=== PATIENT | female | born 1990 | race Caucasian/White ===

== ENCOUNTER 2020-03-07 09:29 | Outpatient (CLI) | payer MEDICAID, SELFPAY ==
[2020-03-07 09:55] LABS: Basophils % 0.5 %; Eosinophils # 0.1 10^3/uL (0.0-0.8); Eosinophils % 1.4 %; Hematocrit 44.3 % (37.0-47.0); Lymphocytes # 2.4 10^3/uL (0.8-4.8); Mean Corpuscular HGB Conc 31.6 g/dL (30.0-36.0); Mean Corpuscular Hemoglobin 28.1 pg (28.0-34.0); Mean Platelet Volume 13.2 fL (7.4-10.4); Monocytes # 0.3 10^3/uL (0.2-0.9); Monocytes % 3.6 %; Neutrophils # 5.43 10^3/uL (1.8-7.7); Neutrophils % 65.1 %; Nucleated Red Blood Cells % 0 %; Platelet Count 115 10^3/cmm (130-400); Red Blood Count 4.98 10^6/uL (4.1-5.3); Red Cell Distribution Width 13.1 % (12.1-15.1); White Blood Count 8.3 10^3/uL (4.0-10.0)
[2020-03-07 12:20] LABS: Ferritin 100 ng/mL (15-150); Iron 64 ug/dL (37-145); Percent Saturation 17.7 % (20-50); Total Iron Binding Capacity 360 mcg/dl; Unsaturated Iron Binding 296 ug/dL (112-347)
[2020-03-07 12:34] LABS: LAB Peripheral Smear Sent for Review
[2020-03-07 12:50] LABS: Platelet Count 98 10^3/cmm (130-400)
--- NOTE | 2020-03-07 16:38 | ONC CON_ITS ---
Dr. Bowman New Patient Note Patient: Stella Hamilton Unit #: [id number]: 1990 Dicatated By: Matthew Bowman M.D.Date of Visit: Mar 07, 2020 Onc MED New Patient/Consult Referring Physician: Dr. Catracho Pimentel M.D. Dr. Amadou Castaneda History of Present Illness: Ms. Stella Hamilton is a 29-year-old female , first seen here at 23 weeks of gestation. Her estimated date of delivery was 01/15/14. On review of her laboratory data pre-, she had a borderline low platelet counts of 130,000 in November of 2010 without anemia. On 06/02/13 she was seen in ED with streptococcal urinary tract infection. At that time, her platelets measured 104,000. WBC and hemoglobin were unremarkable. On routine laboratory analysis by [facility] from 09/04/13 her platelets further decreased to 95,000, MPV 12.3. She was first seen on 07/22/14. Iron deficiency was found, she began on oral supplements. At 30 weeks of gestation, her platelets decreased to 80,000, without hemolysis. An ultrasound of the abdomen on 11/23/2013 showed significant hepatomegaly at 17.8 cm with fatty infiltration. She had an enlarged spleen up to 14.1 cm without intrasplenic masses identified. On 12/04/13 bone marrow biopsy showed 95 -100% cellularity with a trilineage hematopoiesis, increased megakaryocytes without significant atypia. She had absent iron storage. Flow was with a myeloid left shift without aberrant populations detected. On 01/13/2014 she required a , due to failure to progress. She had her platelets were stable at 80,000. She had no significant complications, although hemoglobin decreased to 9.6 g/dL . No transfusions required. She stopped iron pills after taking for few weeks . No petechia or bruising. Her hemoglobin recovered to 13.9 g/dL, platelets stable at 92,000. She has subclinical iron deficiency. Follow-up sonogram of abdomen was ordered on August 24, 2014 but patient did not go for it as she moved down to [place] in 2014 and there she never needed any intervention, in fact never saw any physician or any lab work-up was done during her stay in [place] and then in 2017 she moved back to [place]. As per patient in January 2027 developed nausea vomiting diarrhea and left upper quadrant pain and went to [facility] where she was diagnosed with stomach bug and her lab work-up in the ER showed her platelet count was 55,000, she was treated with oral antibiotics and hydration, she improved and follow-up CBC done in her [facility] office on February 26, 2020 shows white blood count 9.4 hemoglobin 14.1 hematocrit 44.5 platelets 122,000, patient was referred to hematology clinic for further follow-up and evaluation as per patient she never had any hematuria or hemoptysis or hematemesis or hematochezia but did have some difficulty in stopping bleeding when she underwent tooth extraction and she bled for 2 days. But patient was taking Excedrin for tooth ache prior to the procedure. Patient has no family history of bleeding disorder or blood disorder Patient denies any petechia or ecchymosis patient denies any nosebleed or gum bleed patient denies any hematuria or dysuria patient denies any melena or hematochezia. Patient denies any menstrual periods since last year, she has seen [facility] for that and progesterone was recommended and now under consideration.Denies abdominal pain, no night sweats, no recurrent fever, no weight loss, no peripheral lymphadenopathy or abdominal fullness. Past Medical History: Ms. Hamilton's medical history is unremarkable. Past Surgical History: Ms. aHmilton's surgical/procedural history consists of cholecystectomy, mandible repair, and tonsillectomy. Medications: There is no information available for Current Medications - Patient. Allergies: Amoxicillin and Penicillins. 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 She is an occasional smoker who has smoked 0.5 packs/day for 10 years. She has no history of drinking. She has indicated exposure to the following products: cigarettes. Ms. Hamilton reports the following support systems: lives with spouse, significant other, family, or friends, lives in own house, and supportive family/friends willing to assist with needs. Her diet consists of regular meals. She indicates her activity level as: regular exercise. Family History: Ms. Hamilton's mother is alive: medical history includes anemia. Ms. Hamilton's father is alive: medical history includes Polycythemia. Ms. Hamilton has 1 sister who is alive: medical history includes anemia. Review Of Symptoms: Constitutional - No weight loss, fevers, chills,or night sweats, ENMT - No problems with hearing, no sore throat, no sinus drainage, Hematologic/Lymphatic - Positive for easy bruising and frequent nosebleeds, Respiratory - No cough, hemoptysis, or wheezing, Cardiovascular - No chest pain, palpitations, dyspnea on exertion, or recent change in exercise tolerance, Gastrointestinal - No dysphagia, abdominal pain, nausea, vomiting, or constipation. Positive for diarrhea, Genitourinary (F) - No hematuria. Positive for urinary frequency, no urgency or incontinence, Musculoskeletal - No joint pain or bone pain, Integumentary - No chronic rashes, ulcerations or skin changes, Neurologic - No headache and no areas of focal weakness or numbness. No loss of consciousness. No sensory problems, Psychiatric - Positive for anxiety. Vital Signs: Performed on Mar 07, 2020 11:37: 0, 41.24 (HIGH), 2.17 sq.m, 65.00 in, 99 %, 79 /min, 20 /min, 143/96 mm(hg) (HIGH), 97.7 F (LOW), 247.8 lbs (HIGH), and Performed on Aug 24, 2014 08:07: 0. Performance Status: 0 - Fully active, able to carry on all predisease activities without restrictions. (ECOG) Physical Examination: ENMT - No mouth sores, no thrush, no jaundice, Respiratory - Lungs are clear, Cardiovascular - Regular rate and rhythm of heart, Abdomen - Soft, bowel sounds present, Extremities - No visible edema, petechia or ecchymosis, no peripheral lymphadenopathy. Lab/Imaging: Test performed on Mar 07, 2020 09:40 WBC 8.3 10 3/uL RBC 4.98 10 6/uL HGB 14.0 g/dL HCT 44.3 % MCV 89.0 fL MCH 28.1 pg MCHC 31.6 g/dL RDW 13.1 % Platelet Count 115 10 3/cmm MPV 13.2 fL Neutrophils 5.43 10 3/uL Lymphocytes 2.4 10 3/uL Monocytes 0.3 10 3/uL Eosinophils 0.1 10 3/uL Basophils 0.0 10 3/uL Neutrophil % 65.1 % Lymphocyte % 29.0 % Monocyte % 3.6 % Eosinophil % 1.4 % Basophils % 0.5 % NRBC % 0 % Impression: h/o mild thrombocytopenia discovered at 21 weeks of gestation. She had a in January 2014. Her anemia recovered, with oral iron A. The thrombocytopenia is multifactorial: 1) iron deficiency, was treated with oral replacement. 2) trapping of platelets due to hepatosplenomegaly 3) may still have a component of immune thrombocytopenic purpura (ITP) as she has increased megas in the marrow. B: Hepatosplenomegaly is concerning, but of unclear etiology: Non - alcoholic steatohepatitis is a rare in her age group. Lymphoproliferative disorder is not supported by bone marrow biopsy from 12/04/13. Plan: Discussed with patient regarding her labs white blood count 8.3 hemoglobin 14 crit 44.3 platelets 115,000 Clinically, patient is doing well with no signs symptoms suggestive of bleeding, her follow-up labs shows mild thrombocytopenia with a normal hemoglobin and white blood count. Etiology unclear could be multifactorial including splenic sequestration or platelet clumping due to EDTA in the sampling tube. At this point we will consider CT scan of abdomen to check hepatosplenomegaly status which was seen on her previous abdominal sonogram in 2013, follow-up abdominal sonogram was ordered in August 2014 but patient did not schedule it. And also reviewed peripheral blood smear and do manual platelet count to rule out clumping. And she return to clinic after CT scan of abdomen with CBC. Signed By: Matthew Bowman M.D. <<Signature on File>>
== END 2020-03-07 09:30 | disposition home or self-care (01) ==
LOC: ONCMED 09:33
PROVIDERS: PCP Family Medicine; Visit Provider Internal Medicine Hematology & Oncology
DX: D69.6 Thrombocytopenia, unspecified (principal); R16.2 Hepatomegaly with splenomegaly, not elsewhere classified
CPT/HCPCS: 80500; 82728; 83540; 83550; 85025; 85049; 99203

== ENCOUNTER → 2021-03-07 10:42 | Outpatient (BNVA) | payer OTHER, SELFPAY | PROVIDERS: PCP Family Medicine; Referring Provider Emergency Medicine; Visit Provider Orthopaedic Surgery | DX: S82.141A Displaced bicondylar fracture of right tibia, initial encounter for closed fracture (principal); X58.XXXA Exposure to other specified factors, initial encounter | CPT/HCPCS: 73562 ==

== ENCOUNTER → 2021-06-08 10:18 | Outpatient (BNVA) | payer OTHER, SELFPAY | PROVIDERS: PCP Family Medicine; Referring Provider Orthopaedic Surgery; Visit Provider Orthopaedic Surgery | DX: Z01.812 Encounter for preprocedural laboratory examination (principal); Z20.822 Contact with and (suspected) exposure to COVID-19 | CPT/HCPCS: 87635 ==

== ENCOUNTER 2022-02-12 22:39 | Outpatient (CLI) | payer OTHER, SELFPAY ==
[2022-02-12] VITALS (7 sets, daily range): BP systolic 132–156; BP diastolic 71–91; PULSE 78–100; RESP 20; BMI 46.5
[2022-02-12 22:55] LABS: Urine Appearance Clear (CLEAR); Urine Color Colorless (Yellow)
[2022-02-12 22:56] LABS: Bilirubin Urine Neg (Negative); Blood Urine Neg (Negative); Glucose Urine UA Norm (Normal); Ketones Urine Negative (Negative); Leukocyte Esterase Urine Negative (Negative); Nitrate Urine Negative (Negative); Protein Urine Neg (Negative); Specific Gravity, Urine 1.005 (1.005-1.030); Urobilinogen Urine Norm (Negative); pH Urine 7 (5-7)
[2022-02-12 23:01] LABS: Add Urine Culture? No; Bacteria Urine 1+ /hpf; RBC Urine 0-4 /hpf (0-2); Squamous Epithelial Cell Urine 0-4 /hpf (0-5); WBC Urine 0-4 /hpf (0-5)
== END 2022-02-12 23:50 | disposition home or self-care (01) ==
LOC: OPOB 22:41 → OBGYN 22:43
PROVIDERS: PCP Family Medicine; Visit Provider Family Medicine
DX: O26.899 Other specified pregnancy related conditions, unspecified trimester (principal); Z3A.00 Weeks of gestation of pregnancy not specified; R10.9 Unspecified abdominal pain
CPT/HCPCS: 59025; 81001; 99211

== ENCOUNTER → 2022-03-06 10:27 | Outpatient (BNVA) | payer OTHER, SELFPAY | PROVIDERS: PCP Family Medicine; Visit Provider Orthopaedic Surgery | DX: M25.561 Pain in right knee (principal) | CPT/HCPCS: 73560; 73565 ==

== ENCOUNTER 2022-04-26 06:00 | Day surgery (SDC) | payer OTHER, SELFPAY ==
[2022-04-25 10:33] VITALS: BMI 37.4
[2022-04-26] VITALS (8 sets, daily range): BP systolic 115–145; BP diastolic 71–89; PULSE 66–90; RESP 14–18; TEMP 36.1–36.4; O2SAT 93–99
--- NOTE | 2022-04-26 06:07 | P.ANESASSM_ITS ---
Pre-Anesthetic Assessment Height/Weight: Height 1.65 m Weight 102.058 kg Preop Diagnosis: Knee pain Operation Date: 04/26/22 07:00 Proposed Procedures p Right Knee Arthroscopy 91281,S80.01XA(Right) - Duane Nicole MD Familial anesthetic complications: none Was Beta Tiffanie taken within 24 hours: N/A Was Clonidine taken within 24 hours: N/A Last intake: 04/25/22 Social Tobacco and No alcohol Exam alert, oriented x 3, clear to auscultation bilaterally and regular rate & rhythm Airway Submandibular: within normal limits Cervical ROM: within normal limits Mallampati: Class I Dentition: partials History/ROS No significant complaints Pulmonary None reported CV/HEM None reported None reported Hepatic None reported GI None reported Metabolic Diabetes Mellitus Musc/skel Knee pain Obesity Neuropsych None reported Anesthetic Plan ASA status: 2 Anesthesia: Anesthesia Evaluation and General Other: We discussed risk and benefits of general anesthesia including PONV, sore throat (sometimes severe), corneal abrasion, positioning and peripheral nerve injuries, life threatening allergic reaction, post operative ICU admission requiring prolonged intubation, stroke, heart attack, , and rare incidences of recall. Patient consents to proceed with general anesthesia. Today I conducted a brief goal based motivational smoking intervention with the patient. We discussed the health risk of prolonged tobacco use, as well as the risk of debbie-operative tobacco use and its impact on wound healing/post-op infections. Risk of > 500 ml blood loss (7ml/kg in children): No Medications/Allergies Home Medications Medication Instructions Recorded Confirmed Last Taken Type vitamins-iron fumarate 65 1 tab PO DAILY 02/12/22 04/25/22 02/12/22 08:00 History mg iron-folic acid 1 mg tablet metformin 500 mg tablet 500 mg PO BID 04/25/22 04/25/22 Unknown History hydrocodone 5 mg-acetaminophen 325 1 tab PO Q4H #30 tabs 04/26/22 Unknown Rx mg tablet Allergies Allergy/AdvReac Type Severity Reaction Status Date / Time No Known Allergies Allergy Verified 04/25/22 10:29 [facility] Anesthesia Social History Smoking and tobacco status: current every day smoker Data Anesthesia Cardiac Studies: No Data to Display
[2022-04-26 06:37] LABS: Glucose Point of Care 102 mg/dL (70-110)
[2022-04-26] MEDS: sodium chloride 0.9% 1,000 ML 30 ML IV (06:38)
--- NOTE | 2022-04-26 06:48 | W.PM.OPSFHP ---
Same Day Surgery H&P Indication for Procedure/HPI DATE OF PROCEDURE: April 26, 2022 CHIEF COMPLAINT/INDICATIONFOR SURGICAL PROCEDURE: Right knee pain here for diagnostic arthroscopy PREOP DIAGNOSIS: Knee pain PLANNED PROCEDURE: Operation Date: 04/26/22 07:00 Proposed Procedures p Right Knee Arthroscopy 43375,S80.01XA(Right) - Duane Nicole MD 31 year old female with right knee pain after a slip and fall while working at [facility] [employer] DOI: 02-28-2021.? Initail concerns were raise about fracture. An MRI at [facility] 04-18-2021 no specific internal derangement specifically no tibial plateau fracture.? As the was managed initially with 6 weeks of therapy without improvement.? He reportedly has still been unable to return to work.? She states she can walk or stand no more than 30 minutes/h.? 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 She describes pain over the anterior medial and anterior lateral aspect of the knee.? Medications/Allergies* Home Medications Medication Instructions Recorded Confirmed Type vitamins-iron fumarate 65 1 tab PO DAILY 02/12/22 04/26/22 History mg iron-folic acid 1 mg tablet metformin 500 mg tablet 500 mg PO BID 04/25/22 04/26/22 History Allergies/Adverse Reactions Allergy/AdvReac Type Severity Reaction Status Date / Time No Known Allergies Allergy Verified 04/25/22 10:29 Current Medications: Generic Name Dose Route Start Last Admin Trade Name Freq PRN Reason Stop Dose Admin Sodium Chloride 1,000 mls @ 30 mls/hr 04/26/22 06:15 04/26/22 06:38 Sodium Chloride 0.9% IV 04/27/22 06:14 30 mls/hr .Q24H DOTTY Administration Pertinent History/Comorbid Conditions* Social History Smoking and tobacco status: current every day smoker Pertinent Exam Findings alert, oriented x 3 and clear to auscultation bilaterally Examination of the right knee motion is from full extension to 130 degrees. No effusion Tenderness medial and lateral patellofemoral articulation more so than medial lateral joint line Patella tracks well Cruciate collateral ligaments are stable. Recommendations Surgery/Procedure today Coding Level of Care Code Acute Wireless Field Technician for Renato Scanlon
[2022-04-26] MEDS: acetaminophen 1,000 MG/100 ML PIGGYBACK 400 MG IV (06:58)
[2022-04-26] MEDS: ceFAZolin 2,000 MG in sodium chloride 0.9% (plus) 50 ML 100 MG IV (07:00)
[2022-04-26] MEDS: morphine 4 mg/mL SDV 1 mL 8 MG XX (07:31)
--- NOTE | 2022-04-26 07:47 | PM.OP ---
Operative Report Date of procedure: April 26, 2022 Pre-op diagnosis: Preop Diagnosis Right knee pain Post-op diagnosis: same Procedure done: Diagnostic arthroscopy right diagnostic arthroscopy right knee Pathology: none sent Surgeon: Duane Nicole Anesthesia: General Estimated blood loss (mL): 5 Condition: stable Disposition: PACU Brief History: The patient is a 28. She had persistent knee pain despite conservative measures. Arthroscopy was chosen to definitively rule out internal derangement Procedure: The patient was taken to the operating room and given 2 g of Ancef. She was given a general endotracheal anesthesia. She was prepped and draped in the supine position with her right leg exposed. A timeout was performed. The knee was entered through standard inferior medial and inferior lateral portal. The diagnostic portion of arthroscopy was performed. The medial and lateral menisci were carefully probed and found to be free of tearing. The anterior cruciate ligament was healthy. Chondral surfaces were pristine. The scope was moved into the posterior medial and posterior lateral compartments through the notch with no rapid lesions or other pathology identified. Arthroscopy equipment is removed. Portals were closed with 3-0 Prolene. Sterile dressings were applied. The patient was extubated taken recovery in stable condition.
[2022-04-26 08:36] LABS: OR HCG Qualitative Urine Negative (Negative)
[2022-04-26] MEDS: HYDROcodone-acetaminophen 5-325 mg Tablet 1 TAB PO (08:52)
--- NOTE | 2022-04-26 14:25 | ANE.PACU2 ---
Inpatient post-anesthesia follow up: Airway intact: Yes Vital signs: Temperature 97.1 F Pulse Rate 76 Respiratory Rate 18 Blood Pressure 126/74 Pulse Oximetry 98 Oxygen Delivery Me thod Room Air Oxygen Flow Rate 6 Fraction of Inspir ed Oxygen Hydration adequate: Yes Nausea and vomiting: No Pain level: 4 Mental status: Baseline
== END 2022-04-26 09:13 | disposition home or self-care (01) ==
PROVIDERS: Anesthesiology; PCP Family Medicine; Visit Provider Orthopaedic Surgery
PROC: (CPT 29870; principal; 2022-04-26 07:00)
DX: M25.561 Pain in right knee (principal); E11.9 Type 2 diabetes mellitus without complications; F17.210 Nicotine dependence, cigarettes, uncomplicated
CPT/HCPCS: 29870; 36416; 81025; 82962; 84703; J0330; J1100; J1200; J1885; J2250; J2270; J2405; J2704; J2710; J3010; J3490; J7030